=== PATIENT | female | born 1975 | race American Indian/Alaskan Native ===

== ENCOUNTER 2019-04-08 13:05 | Emergency (ER) | payer OTHER ==
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
[2019-04-08 14:50] VITALS: BP 140/96
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
== END 2019-04-08 18:17 | disposition home or self-care (01) ==
LOC: ED 13:05
DX: S39.012A Strain of muscle, fascia and tendon of lower back, initial encounter (principal); S16.1XXA Strain of muscle, fascia and tendon at neck level, initial encounter; V89.2XXA Person injured in unspecified motor-vehicle accident, traffic, initial encounter; Y93.89 Activity, other specified; Y92.410 Unspecified street and highway as the place of occurrence of the external cause; Y99.8 Other external cause status
CPT/HCPCS: 72040; 72100